=== PATIENT | male | born 1990 | race Caucasian/White ===

== ENCOUNTER 2017-11-13 23:09 | Emergency (ER) | payer OTHER ==
[~2017-11-13] VITALS: Ht 175.3 cm; Wt 88.5 kg
[2017-11-13 23:40] VITALS: BP 138/67
[2017-11-14] MEDS ORDERED: IBUPROFEN 800 MG TAB PO ONE (00:15)
== END 2017-11-14 01:29 | disposition home or self-care (01) ==
LOC: ER 23:12
DX: S93.432A Sprain of tibiofibular ligament of left ankle, initial encounter (principal); S90.32XA Contusion of left foot, initial encounter; X50.0XXA Overexertion from strenuous movement or load, initial encounter; Y93.89 Activity, other specified; Y99.8 Other external cause status; Y92.89 Other specified places as the place of occurrence of the external cause
CPT/HCPCS: 29515; 73610; 73630